=== PATIENT | female | born 1990 | race Caucasian/White ===

== ENCOUNTER 2022-10-04 09:34 | Inpatient (IN) | payer OTHER ==
[~2022-10-04] VITALS: Ht 152.4 cm; Wt 3.2 kg
[2022-10-11] MEDS ORDERED: IBUPROFEN800 MG PO (07:38)
== END 2022-10-11 13:25 | disposition home or self-care (01) | DRG 785 ==
LOC: OB/GYN 10-08 09:00 → O/R 10-08 09:09 → OB/GYN 10-08 09:09
PROVIDERS: Obstetrics & Gynecology; ADMIT Specialist; ATTEND Specialist
PROC: 0UB70ZZ Excision of Bilateral Fallopian Tubes, Open Approach (ICD-10-PCS; 2022-10-08)
PROC: 4A1HXCZ Monitoring of Products of Conception, Cardiac Rate, External Approach (ICD-10-PCS; 2022-10-08)
PROC: 10D00Z1 Extraction of Products of Conception, Low, Open Approach (ICD-10-PCS; principal; 2022-10-08 09:00)
DX: O34.211 Maternal care for low transverse scar from previous cesarean delivery (principal); Z3A.39 39 weeks gestation of pregnancy; Z37.0 Single live birth; Z20.822 Contact with and (suspected) exposure to COVID-19; Z30.2 Encounter for sterilization